=== PATIENT | male | born 1985 | race Caucasian/White ===

== ENCOUNTER 2018-09-30 05:29 | Inpatient (IN) | payer BC ==
[~2018-09-30] VITALS: Ht 170.2 cm; Wt 70.3 kg
[2018-09-30] VITALS (7 sets, daily range): BP systolic 107–143; BP diastolic 68–93
[~2018-09-30 05:29] MED LIST: DICYCLOMINE HCL10 MG PO; METRONIDAZOLE500 MG ORAL; ZOFRAN4 MG ORAL
--- NOTE | 2018-09-30 06:13 | Emergency Room Report ---
History of Present Illness General Chief Complaint: Abdominal Pain Source: Patient Present Illness HPI This is a 33-year-old male with no past medical history. He presents with chief complaint of left lower quadrant pain. There are ongoing for over 48 hours. He was here day and half ago. Labs unremarkable. CT scan show enteritis/proctitis. He was placed on Flagyl, Zofran and Bentyl. He said only helped a little bit. Still with pain. No longer nauseous. No fever or chills. He did follow-up with urgent care and had a urine dip that was unremarkable. Because of continual pain is weighs here. Pain is localized the left lower quadrant. Sharp. 8 out of 10. No radiation. No diarrhea. No vomiting. No urinary complaint. Allergies: Coded Allergies: PENICILLINS (Verified Allergy, Unknown, 09/28/18) Patient History Past Medical History: see triage record, old chart reviewed Past Surgical History: none Pertinent Family History: none Social History: Denies: smoking Immunizations: other Reviewed Nursing Documentation: PMH: Agreed; PSxH: Agreed Nursing Documentation-PMH Past Medical History: No History, Except For Hx Cardiac Problems: Yes - sleep apnea Review of Systems Eye: Denies: eye pain, blurred vision ENT: Denies: ear pain, nose congestion, throat swelling Respiratory: Denies: cough, shortness of breath Cardiovascular: Denies: chest pain, palpitations Gastrointestinal: Reports: abdominal pain; Denies: diarrhea, nausea, vomiting Musculoskeletal: Denies: back pain, joint pain Skin: Denies: rash Neurological: Denies: headache, numbness Endocrine: Denies: increased thirst, increased urine Hematologic/Lymphatic: Denies: easy bruising All Other Systems: negative except mentioned in HPI Physical Exam Vital Signs Date Time Temp Pulse Resp B/P (MAP) Pulse Ox O2 Delivery O2 Flow Rate FiO2 09/30/18 05:37 97.7 102 18 125/80 98 Room Air vitals normal Sp02 EP Interpretation: reviewed, normal General Appearance: well appearing, no apparent distress, alert Head: normocephalic, atraumatic Eyes: bilateral eye PERRL, bilateral eye EOMI ENT: hearing grossly normal, normal pharynx Neck: full range of motion, supple, no meningismus Respiratory: chest non-tender, lungs clear, normal breath sounds Cardiovascular #1: regular rate, rhythm, no murmur Gastrointestinal: normal bowel sounds, no mass, no organomegaly, no bruit, non- distended, tenderness - Left lower quadrant Musculoskeletal: back normal, gait/station normal, normal range of motion Psychiatric: mood/affect normal Skin: warm/dry Medical Decision Making Diagnostic Impression: Primary Impression: Ureteral stone with hydronephrosis Additional Impression: Renal colic on left side ER Course Patient with left lower quadrant pain. This is secondary to ureteral stone seen on noncontrast CT scan. Pain is better. No evidence of infection. We'll discharge home. Lab Results Impression unremarkable CT/MRI/US Diagnostic Results CT/MRI/US Diagnostic Results : Imaging Test Ordered: CT abdomen and pelvis Impression Read by radiologist. Small left ureteral stone. Last Vital Signs Date Time Temp Pulse Resp B/P (MAP) Pulse Ox O2 Delivery O2 Flow Rate FiO2 09/30/18 05:44 97.7 87 18 125/80 98 Room Air Status: improved Disposition: HOME, SELF-CARE Condition: Stable Referrals: NOT CHOSEN IPA/,REFERRING (PCP) Natalio Denson MD Sep 30, 2018 06:13
[2018-09-30] MEDS ORDERED: Morphine Sulfate 4mg/ml Inj (IV/IM USE ONLY) IVP ONE (06:15)
[2018-09-30 06:47] LABS: APPEARANCE,URINE CLEAR; BILIRUBIN, URINE NEGATIVE (NEGATIVE); GLUCOSE, URINE (UA) NEGATIVE (NEGATIVE); KETONES,URINE 3+ (NEGATIVE); LEUKOCYTE ESTERASE ,URINE 1+ (NEGATIVE); NITRITE,URINE NEGATIVE (NEGATIVE); PH,URINE 6.5 (4.5-8.0); PROTEIN,URINE NEGATIVE (NEGATIVE); UROBILINOGEN,URINE NORMAL MG/DL (0.0-1.0)
[2018-09-30 06:48] LABS: ANION GAP 10 mmol/L (5-15); BLOOD UREA NITROGEN 13 mg/dL (7-18); CARBON DIOXIDE 27 MMOL/L (21-32); CHLORIDE 99 MMOL/L (98-107); CREATININE 1.6 MG/DL (0.55-1.30); POTASSIUM 3.5 MMOL/L (3.5-5.1); SODIUM 136 MMOL/L (136-145)
[2018-09-30 06:56] LABS: COLOR,URINE YELLOW
[2018-09-30 06:57] LABS: BASOPHILS % (AUTO) 0.5 % (0.0-2.0); EOSINOPHILS % (AUTO) 0.7 % (0.0-3.0); HEMATOCRIT 39.8 % (42.0-52.0); HEMOGLOBIN 14.4 G/DL (14.2-18.0); LYMPHOCYTES % (AUTO) 16.8 % (20.0-45.0); MEAN CORPUSCULAR VOLUME 85 FL (80-99); MONOCYTES % (AUTO) 14.5 % (1.0-10.0); NEUTROPHILS % (AUTO) 67.5 % (45.0-75.0); PLATELET COUNT 201 K/UL (150-450); RED BLOOD COUNT 4.69 M/UL (4.70-6.10); WHITE BLOOD COUNT 8.4 K/UL (4.8-10.8)
[2018-09-30] MEDS ORDERED: NKM (07:34)
[2018-09-30] MEDS ORDERED: Ketorolac 30mg Inj IV ONE (08:00)
[2018-09-30] MEDS ORDERED: Metoclopramide 10mg/2ml Inj IVP ONE (08:00)
--- NOTE | 2018-09-30 08:45 | Diagnostic Imaging Report ---
Indication: History of a obstructive nephropathy and stones. Follow-up. Flank and abdominal pain Technique: Continuous helical transaxial imaging of the abdomen and pelvis was obtained from the lung bases to the pubic symphysis. No intravenous contrast was administered. Coronal 2-D reformats were also obtained. Automatic Exposure Control was utilized. Total Dose length Product (DLP): 638.[address] Dose Index Volume (CTDIvol): 12.77 mGy Comparison: 09/28/2018 Findings: There is a small left distal ureteral stone now demonstrated at the left UVJ having advanced slightly by the perhaps a 1 cm. There is mild left hydroureteronephrosis. There is a high density material within the distal left ureter which may be blood or contrast material. Tiny nonobstructive stone on noted within the left kidney. Right kidney is unremarkable. Small amount of perinephric stranding demonstrated at the lower margin of the left kidney and the upper ureter. There is no change otherwise. Lung bases remain clear. IMPRESSION: Tiny punctate left distal ureteral calculus now at the UVJ having progressed slightly from the last exam. Mild persistent left hydroureteronephrosis. Tiny nonobstructive stone left kidney. [facility] has communicated the preliminary results to the Emergency Department. Their findings are largely concordant with this report. The CT scanner at [facility] is accredited by the [employer] and the scans are performed using dose optimization techniques as appropriate to a performed exam including Automatic Exposure control.
[2018-09-30] MEDS ORDERED: Norco 5mg/325mg tab ORAL PRN (10:45)
[2018-10-01] VITALS: BP_SYST 118; BP_SYST 169; BP_DIAS 75; BP_DIAS 76
[2018-10-01 04:00] VITALS: BP 105/66
--- NOTE | 2018-10-01 04:45 | History and Physical Report ---
DATE OF ADMISSION: 09/30/2018 REASON FOR ADMISSION: Biliary colic and abdominal pain. HISTORY OF PRESENT ILLNESS: This 33-year-old white male has had some abdominal discomfort with vomiting and nausea for several days food poisoning. He apparently improved somewhat, but then developed left lower quadrant flank pain. He came to the emergency room on September 28, 2017 and was noted to have mild hydronephrosis and renal stone. He was sent home on oral pain medications, but failed to improve and returned today with worsening pain. Repeat imaging studies showed slight movement of the stone, but persistent hydro and partial obstruction. The patient has not had any diarrhea, fevers, or chills. He has had some abdominal pain and nausea with no new vomiting today. PAST MEDICAL HISTORY: Otherwise unremarkable. ALLERGIES: None known. MEDICATIONS: Reviewed. SOCIAL HISTORY: Negative for smoking, alcohol, or substance abuse. REVIEW OF SYSTEMS: No fevers. No cough. No history of asthma. No history of high blood pressure. No history of seizure or stroke. No history of diabetes or thyroid disorder. No prior history of melena, bright red blood per rectum, or kidney stones . PHYSICAL EXAMINATION: GENERAL: Well-developed and well-nourished. Mild distress. VITAL SIGNS: Blood pressure 132/60, pulse 80, respiratory rate 18, and afebrile. HEENT: Conjunctivae are pink. Oropharynx clear. NECK: Supple. Jugular venous pressure normal. LUNGS: Clear. CARDIAC: Regular rhythm and rate. Normal S1 and S2 with no murmur, rub, or gallop. ABDOMEN: Soft. Mildly tender in the upper quadrant diffusely. No guarding or rebound. No CVA tenderness. NEUROLOGIC: Nonfocal. EXTREMITIES: Without clubbing or cyanosis. No edema. IMPRESSION: 1. Renal colic with mild hydro and obstructive uropathy. 2. Resolving gastroenteritis. PLAN: 1. Admit to hospital. 2. Bed rest. 3. IV fluid hydration. 4. Drain urine. 5. DVT prophylaxis. 6. Stool studies if available. 7. Antiemetics as needed. 8. Pain control. Nadeem Chinchilla M.D. DR: BEAR JOB#: [id number] CC:
[2018-10-01 08:00] VITALS: BP 131/100
[2018-10-01 12:00] VITALS: BP 127/77
[2018-10-01 14:51] LABS: ANION GAP 6 mmol/L (5-15); BLOOD UREA NITROGEN 9 mg/dL (7-18); CALCIUM 8.9 MG/DL (8.5-10.1); CARBON DIOXIDE 31 MMOL/L (21-32); CHLORIDE 103 MMOL/L (98-107); CREATININE 1.1 MG/DL (0.55-1.30); POTASSIUM 3.5 MMOL/L (3.5-5.1); SODIUM 140 MMOL/L (136-145)
[2018-10-01 14:58] LABS: ALANINE AMINOTRANSFERASE 33 U/L (12-78); ALBUMIN 3.1 G/DL (3.4-5.0); ALBUMIN/GLOBULIN RATIO 0.8 (1.0-2.7); ALKALINE PHOSPHATASE 48 U/L (46-116); ASPARTATE AMINO TRANSFERASE 22 U/L (15-37); BILIRUBIN,TOTAL 0.3 MG/DL (0.2-1.0); CHOLESTEROL 122 MG/DL (< 200); HDL CHOLESTEROL 36 MG/DL (40-60); TRIGLYCERIDES 93 MG/DL (30-150)
--- NOTE | 2018-10-01 21:15 | Consultation ---
DATE OF CONSULTATION: 10/01/2018 CONSULTING PHYSICIAN: Orestes Doll M.D. REFERRING PHYSICIAN: Nadeem Chinchilla M.D. REASON FOR CONSULTATION: Evaluation of renal colic. HISTORY OF PRESENT ILLNESS: This is a pleasant 33-year-old male. He came to the emergency room yesterday because of abdominal pain and renal colic. He was seen apparently earlier two days ago for the same problem. He had a CT scan that showed a tiny left distal ureteral calculus with mild left hydronephrosis. There was also a small left kidney stone. Apparently, the patient passed the stone this morning, he feels better. PAST MEDICAL HISTORY: Significant for sleep apnea, otherwise negative. MEDICATIONS: Current medication list was reviewed. ALLERGIES: To penicillins. SOCIAL HISTORY: The patient is a nonsmoker. REVIEW OF SYSTEMS: As above. FAMILY HISTORY: Noncontributory. PHYSICAL EXAMINATION: GENERAL: The patient is a well-developed, well-nourished male, in no acute distress. VITAL SIGNS: Temperature is 97.6, blood pressure 130/100. ABDOMEN: Soft. No CVA tenderness. LABORATORY AND DIAGNOSTIC DATA: Laboratory data, UA shows 1+ leukocyte esterase, 3+ ketones. White count is 8.4, hemoglobin 14.4, and platelets 201,000. BUN is 13, creatinine is 1.6. Diagnostic imaging studies, the patient had a CT scan again of the abdomen and pelvis. This showed a tiny stone of the left distal ureter, small stone of the left kidney. There was mild left hydro. IMPRESSION: 1. Left renal colic. 2. Left ureteral and renal calculi. 3. Hydronephrosis. 4. Pyuria. 5. Mild acute kidney injury. PLAN AND DISCUSSION: Again, the patient did have colic. He did pass the stone here this morning, he feels better. I did talk to the patient and nursing staff and the stone will be sent for stone analysis. The patient was advised on increasing his fluid intake and he should have a check of the renal function as an outpatient. Thank you for this consultation. Orestes Doll M.D. DR: DAMIEN JOB#: [id number] CC:
--- NOTE | 2018-10-03 12:56 | Discharge Summary ---
Discharge Summary Discharge Summary _ DATE OF ADMISSION: 09/30/2018 DATE OF DISCHARGE: 10/01/2018 DISCHARGED BY: Dr. Chinchilla REASON FOR ADMISSION: 33 years old male with no significant past medical history, presented with left lower quadrant abdominal pain, ongoing for 48 hours . Patient initially presented to the emergency department om 10/08/18. Laboratory workup was unremarkable. Imaging revealed enteritis/proctitis. Patient was sent home with antispasmodic, antibiotic and antiemetic, but failed to improve and returned with worsening pain. No further nausea . No fever, no chills . Left lower quadrant abdominal pain described as sharp ,8 out of 10, no radiation , no diarrhea, no vomiting, no urinary complaints. Upon evaluation patient was slightly tachycardic ,otherwise stable vital signs. Laboratory workup revealed evidence of acute kidney injury with BUN 13 and creatinine 1.6. No leukocytosis stable hemoglobin hematocrit. Urinalysis revealed no evidence of UTI. CT of the abdomen and pelvis revealed tiny punctate left distal ureteral calculus now at the UVJ having progressed slightly from the last exam. Mild persistent left hydroureteronephrosis. Tiny nonobstructive stone left kidney. Patient was admitted for further management. CONSULTANTS: Urologist Dr. Doll [facility] COURSE: Patient admitted to medical surgical floor and started on IV hydration. Urology consult was requested. Pain management was addressed. DVT prophylaxis provided. All urine was strained. Diet provided as tolerated. Antiemetic provided as needed. Renal parameters and electrolytes closely monitor. Urology seen and evaluated patient in the morning10/01/18. Patient passed stone earlier that morning and felt better. Stone was sent for analysis. Patient was advised to increase fluid intake . Creatinine 1.1 and BUN 9. Patient significantly improved and was ready for discharge home. Due to rapid and unexpected improvement in patient condition, patient was discharged in 1 day. FINAL DIAGNOSES: Left renal colic Left ureteral and renal calculi Mild hydronephrosis with obstructive uropathy-resolved Resolving gastroenteritis Mild acute kidney injury -resolved with passage of stone DISCHARGE MEDICATIONS: No medications. DISCHARGE INSTRUCTIONS: Patient was discharged home Follow up with primary care provider in one week. I have been assigned to dictate discharge summary for this account. I was not involved in the patient's management. Janny De Oliveira NP Oct 03, 2018 12:56
== END 2018-10-01 13:58 | disposition home or self-care (01) | DRG 694 ==
LOC: EMR 05:51 → EDBEDREQSVC 07:34 → 4E 07:42 → EDBEDREQ 09:13
DX: N13.2 Hydronephrosis with renal and ureteral calculous obstruction (principal); K52.9 Noninfective gastroenteritis and colitis, unspecified; N17.9 Acute kidney failure, unspecified
CPT/HCPCS: 36415; 74176; 80048; 80053; 80061; 81003; 82360; 84550; 85025; 96361; 96374; 96375; 99284; J2405; J2765; J8499